=== PATIENT | male | born 1990 | race Caucasian/White ===

== ENCOUNTER 2024-08-07 09:16 | Outpatient (CLI) | payer BC, SELFPAY ==
--- OUTSIDE RECORDS SUMMARY | 2024-08-07 10:15 | XMS_ITS | Data Portability ---
Author Organization [facility] XUANTenzin Diggs Address [address] [place] [address] Care Team Providers Care Field Education Director Name Role Phone SUSU HINOJOSA Primary Care Provider Unavailab le Assessment No assessment recorded. Plan of Treatment Reminders Order Date Submit Date Provider Last Modified By Organization Details Last Modified Time Details Appointments None recorded. Lab None recorded. Referral None recorded. Procedures home sleep testing (PROC) - Auth approved [id number] valid 08/05-[address] [facility], [address] [place] [address], [id number], 11:19:15 Surgeries None recorded. Imaging None recorded. Medication Orders sertraline 100 mg tablet 2023 [facility], [address] [place] [address], [id number], 11:42:39 testosteron e cypionate 200 mg/mL intramuscul ar oil 2023 [id number], [address] , [place], [place], [phone], 12:31:11 Patient TargetsNo targets recorded. Patient Instructions Encounter Date Encounter Id Patient Instructions Last Modified By Organization Details Last Modified Time 06/12/2024 [id number] A healthy lifestyle: care instructions [email or web address] Not available 06/12/2024 11:42:36 Reason for Referral None Reported. Results Created Date Observation Date Name Description Value Unit Range Abnormal Flag Note LastModifiedBy Organization Detail LastModifiedTime Result Notes None recorded. Problems Name Problem SNOMED Code Status Onset Date Resolution Date Notes Provider Name and Address Organization Details Recorded Time Body mass index 25-29 - overweight 420144735 Active 2023 Byron Castillo MA null, [place] - [facility] 4 11:09:11 Long-term drug therapy Active 2023 MARY GRACE Zee Attn: Teo dodson,[address] [place], [address], [place] - [facility] 4 19:15:29 Generalized anxiety disorder 12056156 Active 2023 MARY GRACE Zee Attn: Teo dodson,[address] [place], [address], [place] [facility] 4 19:15:29 Sleep apnea 04505315 Active 2023 MARY GRACE Zee Attn: Teo dodson,[address] [place], [address], [place] [facility] 4 19:16:08 Male hypogonadis m 92519757 Active 2023 MARY GRACE Zee Attn: Teo dodson,[address] [place], [address], [place] [facility] 4 19:16:09 Overweight 421113770 Active 2023 MARY GRACE Zee Attn: Teo dodson,[address] [place], [address], [place] [facility] 4 19:16:12 Positive screening for depression on PHQ-9 (Patient Health Questionnai re 9) 1050165175903 00 Active 2023 MARY GRACE Zee Attn: Teo dodson,[address] [place], [address], [place] [facility] 4 19:16:33 Problem Notes None recorded. Procedures Surgical History Date Name Laterality Status Provider Name and Address Organization Details Recorded Time Eye Surgery completed Byron Castillo MA [facility] 06/12/2024 11:02:20 Tonsillectomy completed Byron Castillo MA [facility] 06/12/2024 11:02:25 Imaging Results None recorded. Procedure Notes None recorded. Medical Equipment None Reported. Allergies No known drug allergies Medications Name Sig Start Date Stop Date Status Note LastModified by Organization Details LastModified Time ondansetron HCl 4 mg tablet TAKE 1 TABLET BY MOUTH EVERY 8 HOURS 06/12 completed Not Available Not Available Not Available sertraline 100 mg tablet Take 1 tablet every day by oral route. 2023 active Not Available Not Available Not Avai lable testosteron e cypionate 200 mg/mL intramuscul ar oil Inject 1 mL every 2 weeks by intramusc ular route. 2023 active Not Available Not Available Not Avai lable Vitals Date Recorded Respiratory rate Provider Name a nd Address Organization Details Last Updated DateTime 06/12/2024 18 /min Byron Castillo MA [facility] 06/12/2024 11:05:18 Date Recorded Body height Provider Name an d Address Organization Details Last Updated DateTime 06/12/2024 175.26 cm Byron Castillo MA [facility] 2023 11:05:34 Date Recorded Body mass index (BMI) Body weight Provider Name and Address Organization Details Last Updated DateTime 06/12/2024 29.8 kg/m2 26037.66 g Byron Castillo MA [facility] 06/12/2024 11:09:05 Date Recorded Oxygen saturation Oxygen saturation in Arterial blood by Pulse oximetry Provider Name and Address Organization Details Last Updated DateTime 06/12/2024 99 % 99 % Byron Castillo MA [facility] 06/12/2024 11:07:15 Date Recorded Heart rate Provider Name an d Address Organization Details Last Updated DateTime 06/12/2024 70 /min Byron Castillo MA [facility] 2023 11:08:12 Date Recorded Systolic blood pressure Diastolic blood pressure Provider Name and Address Organization Details Last Updated DateTime 06/12/2024 128 mm[Hg] 82 mm[Hg] Byron Castillo MA [facility] 06/12/2024 11:08:15 Date Recorded Systolic blood pressure Diastolic blood pressure Provider Name and Address Organization Details Last Updated DateTime 06/12/2024 128 mm[Hg] 80 mm[Hg] MARY GRACE Zee Attn: Accounting,[address] [facility], [place], [address], [facility] 06/12/2024 11:44:29 Social History Question Answer Notes LastModified by Organizat ion Details LastModified Time Tobacco Smoking Status Never Smoker Byron Castillo MA null, [facility] 06/12/2024 11:02:41 Do You Have An Advance Directive? No Information n ot available 06/12/2024 What Is Your Level Of Alcohol Consumption? Occasional Information not available 06/12/2024 Are You Blind Or Do You Have Difficulty Seeing? No Lasix Information n ot available 06/12/2024 What Is Your Level Of Caffeine Consumption? Moderate Information not available 06/12/2024 In The 14 Days Before Symptom Onset, Have You Had Close Contact With A Laboratory-confirm ed COVID-19 While That Case Was Ill? No Information n ot available 06/12/2024 In The 14 Days Before Symptom Onset, Have You Had Close Contact With A Person Who Is Under Investigation For COVID-19 While That Person Was Ill? No Information not available 06/12/2024 Have You Been To An Area Known To Be High Risk For COVID-19? No Information not available 06/12/2024 Are You Currently Employed? Yes Information not available 06/12/2024 Are You Deaf Or Do You Have Serious Difficulty Hearing? No Information not available 06/12/2024 What Type Of Diet Are You Following? REGULAR Information n ot available 06/12/2024 Are There Any Guns Present In Your Home? No Information not available 06/12/2024 What Was The Date Of Your Most Recent Tobacco Screening? 06/12/2024 Information not available 06/12/2024 What Is Your Relationship Status? Information not available 06/12/2024 Do You Use Your Seat Belt Or Car Seat Routinely? Yes Information not available 06/12/2024 Do You Have Smoke And Carbon Monoxide Detectors In Your Home? Yes Information not available 06/12/2024 Do You Feel Stressed (tense, Restless, Nervous, Or Anxious, Or Unable To Sleep At Night)? PA2794-4 Information not available 06/12/2024 Do You Use Any Illicit Or Recreational Drugs? No Information not available 06/12/2024 Do You Use Sunscreen Routinely? Yes Information not available 06/12/2024 Has Tobacco Cessation Counseling Been Provided? No Information not available 06/12/2024 Do You Or Have You Ever Used Any Other Forms Of Tobacco Or Nicotine? No Information not available 06/12/2024 Sex: Male Functional Status Question Answer Note LastModified by [employer] ion Details LastModified Time Are you able to care for yourself? Yes Information not available 06/12/2024 What is your exercise level? Occasional Information not available 06/12/2024 Mental Status None recorded. Family History Nothing Reported. Medical History Condition Response Coronary Artery Disease N Other N High Blood Pressure N Atrial Fibrillation N Kidney or Bladder Problems N Thyroid Problems N GI Problems N Depression N COPD N Blood Clots N Have you had a mammogram in the last yea r? N Skin Problems N Anemia N Heart Attack (ID) N Anxiety Disorder Y Diabetes N Muscle, Joint, or Bone Problems N Seizures/Epilepsy N Have you had a colonoscopy in the last 1 0 years? N Acid Reflux (GERD) N Cancer N Stroke N Asthma N Allergies N Have you had a PSA blood test in the las t year? N High Cholesterol N Hepatitis N Liver Disease N Headaches N Heart Failure N Osteoporosis N Immunizations Vaccine Type Date Status Note Provider Nam e and Address Organization Details Recorded Time COVID-19, mRNA, LNP-S, PF, 30 mcg/0.3 mL dose 07/19/2020 completed SEDA Guzman [place] - [facility] 06/12/2024 11:07:06 COVID-19, mRNA, LNP-S, PF, 30 mcg/0.3 mL dose 06/28/2020 completed SEDA Guzman [place] - [facility] 06/12/2024 11:07:06 Past Encounters Encounter ID Performer Location Encounter Start Date Encounter Closed Date Diagnosis/Indication Diagnosis SNOMED-CT Code Diagnosis ICD10 Code Diagnosis Note [id number] MARY GRACE Zee [facility] [employer] [address] [place] [address] 06/12/2024 10:46:33 06/12/2024 14:23:34 Body mass index 25-29 - overweight 057225753 Z68.29 BMI is 29.8 Overweight 906101783 E66 .3 discussed healthy diet, exercise, controllin g carbohydra khloe and added sugars in the diet Generalize d anxiety disorder 77114731 F41.1 Refill sertraline 100 mg daily patient is stable on therapy with no acute questions or concerns Long-term drug therapy 285455398 Z79.891 Labs reviewed Adult heal th examination 265689779 Z00.00 Annual wellness exam completed. Male hypogonadism 418885 06 E29.1 Patient has low testostero ne total noted on labs brought in from outside source. We will start him on 200 mg every 2 weeks. Home injections will be given. Sleep apnea 76049043 G47 .30 Refer for home sleep study test in to evaluate witnessed apnea high suspicion for obstructiv e sleep apnea Positive s creening for depression on PHQ-9 (Patient Health Questionnaire 9) 7268474139 73314 Z13.31 Patient scored a 5 on screening today and mostly related to fatigue Health Concerns Section Related Observation LastModified by Organization Detai ls LastModified Time None Recorded Concern Status LastModified by Organization Details LastModified Time None Recorded Advance Directives Directive N: Payers Encounter Date Sequence Insurance Name Policy Number Policy Stanton Covered Member ID Stanton Member ID Guarantor Name 06/12/2024 1 [employer] [id number] Rashad Cabral [id number] Rashad Cabral Notes Date Note Type Note Provider Name and Address Organization Details Recorded Time 06/12/2024 text/html Patient is here for his annual wellness exam. Patient has brought labs from outside testing panel that includes showing low testosterone and he is interested in supplementation. Records will be scanned into the chart. MARY GRACE Zee Attn: Accounting[address] [facility], [place], [address], [place] [facility] 07/03/2024 19:16:49
--- OUTSIDE RECORDS SUMMARY | 2024-08-07 10:15 | XMS_ITS | CONTINUITY OF CARE DOCUMENT ---
Author Name curly rawls Address Unknown Organization [facility] Address [address] [place] [address] Phone [phone] Care Team Providers Care Ic Designer [employer] Name Role Phone Stan Ayers MD Unavailable INSURANCE PROVIDERS Payer name Policy type / Coverage type [place] red green party ID [employer] Other [id number]
--- OUTSIDE RECORDS SUMMARY | 2024-08-07 10:16 | XMS_ITS | Data Portability ---
Author Organization [facility] [place], Main Office Address [address] [place] [address] Assessment No assessment recorded. Plan of Treatment Reminders Order Date Submit Date Provider Last Modified By Organization Details Last Modified Time Details Appointments None recorded. Lab TSH + free T4, serum 2022 023 [email or web address] Not available 3 16:06:48 CMP, serum or plasma 2022 023 [email or web address] 4 Not available 3 16:06:48 CBC w/ auto diff 2022 023 [email or web address] Not available 3 16:06:48 lipid panel, serum 2022 023 [email or web address] Not available 3 16:06:47 urinalysis, reflex culture 2022 023 [email or web address] Not available 3 16:06:48 HbA1c (hemoglobin A1c), blood 2022 023 [email or web address] Not available 3 16:06:48 testosteron e, free + total, serum 2022 023 [facility] (Lab), [address] [place], [address], 3 15:16:57 vitamin B12 + folate, serum or blood 2022 023 [facility] (Lab), [address] [place], [address], 3 15:16:55 matthew-bar r virus (ebv) Ab, serum 2022 023 [email or web address] 4 [facility] (Lab), [address] [place], [address], 3 12:33:21 urinalysis, reflex culture 2022 023 [email or web address] [facility] (Lab), [address] [place], [address], 3 12:33:21 HbA1c (hemoglobin A1c), blood 2022 023 [facility] (Lab), [address] [place], [address], 3 15:16:48 lipid panel, serum 2022 023 [facility] (Lab), [address] [place], [address], 3 15:16:45 CMP, serum or plasma 2022 023 [facility] (Lab), [address] [place], [address], 3 15:16:46 CBC w/ auto diff 2022 023 [facility] (Lab), [address] [place], [address], 3 15:16:53 T4, free, serum 2022 023 [facility] (Lab), [address] [place], [address], 3 15:16:50 T3, free, serum or plasma 2022 023 [facility] (Lab), [address] [place], [address], 3 15:16:52 TSH, serum or plasma 2022 023 [facility] ([facility]), [address] [place], [address], 3 15:16:[address] referral 2022 023 [email or web address] [facility], [facility] [place], [address], 3 16:06:58 Procedures None recorded. Surgeries None recorded. Imaging None recorded. Medication Orders sertraline 100 mg tablet 2022 023 [employer] [facility], [facility] [place], [address], 3 11:37:18 Patient TargetsNo targets recorded. Patient InstructionsNo instructions recorded. Reason for Referral [employer] Referral for N odule of skin of right upper limb Referring Physician: Kathy Ramos, Internal Medicine, Encounter Date: 11/13/2022 Results Created Date Observation Date Name Description Value Unit Range Abnormal Flag Note LastModifiedBy Organization Detail LastModifiedTime 06/20/2006/25/2023 LIPID PANEL , STAND SAM cholesterol, total 199 mg/dL <200 normal Not Available [facility] [address] [place], [address], 06/25/2023 15:16:45 06/20/2006/25/2023 LIPID PANEL , STAND SAM HDL cholesterol 37 mg/dL > or = 40 low Not Available [facility] [address] [place], [address], 06/25/2023 15:16:45 06/20/2006/25/2023 LIPID PANEL , STAND SAM triglyceride s 99 mg/dL <150 normal Not Available [facility] [address] [place], [address], 06/25/2023 15:16:45 06/20/20 23 06/25/2023 LIPID PANEL , STAND SAM LDL-choleste rol 141 mg/dL _(brian c) high Refer ence range : <100 Mario able range <100 mg/dL for prima ry preve ntion ; <70 mg/dL for patie nts with CHD or diabe tic patie nts with > or = 2 CHD risk facto rs. LDL-C is now calcu lated using the Annette n-Hop kins calcu latha n, which is a valid ated novel metho d provi ding ariella r accur acy than the Fried erin equat ion in the estim ation of LDL-C . Annette curry SS et al. RAKAN. 2013; 310(1 9): 2061- 2068 (http ://ed ucati on.Qu Manyeta. com/f aq/FA Q164) Not Available [facility] [address] [place], [address], 06/25/2023 15:16:45 06/20/20 23 06/25/2023 LIPID PANEL , STAND SAM chol/HDLC ratio 5.4 (calc ) <5.0 high Not Available [facility] [address] [place], [address], 06/25/2023 15:16:45 06/20/20 23 06/25/2023 LIPID PANEL , STAND SAM non HDL cholesterol 162 mg/dL _(brian c) <130 high For patie nts with diabe khloe plus 1 major ASCVD risk facto r, treat ing to a non-H DL-C goal of <100 mg/dL (LDL- C of <70 mg/dL ) is consjoselito stewart optio n. Not Available [facility] [address] [place], [address], 06/25/2023 15:16:45 06/20/20 23 06/25/2023 COMPR EHENS JAM METAB OLIC PANEL glucose 87 mg/dL 65-99 normal Fasti ng refer ence inter linh Not Available [address] [place], [address], 06/25/2023 15:16:46 06/20/20 23 06/25/2023 COMPR EHENS JAM METAB OLIC PANEL urea nitrogen (BUN) 18 mg/dL 7-25 normal Not Available [address], [address], 06/25/2023 15:16:46 06/20/20 23 06/25/2023 COMPR EHENS JAM METAB OLIC PANEL creatinine 0.92 mg/dL 0.60-1 .26 normal Not Available [address], [address], 06/25/2023 15:16:46 06/20/20 23 06/25/2023 COMPR EHENS JAM METAB OLIC PANEL eGFR 113 mL/mi n/1.7 3m2 > or = 60 normal Not Available [address], [address], 06/25/2023 15:16:46 06/20/20 23 06/25/2023 COMPR EHENS JAM METAB OLIC PANEL BUN/creatini ne ratio SEE NOTE: (calc ) 6-22 Not Repor kailee: BUN and Creat inine are withi n refer ence range . Not Available [address], [address], 06/25/2023 15:16:46 06/20/20 23 06/25/2023 COMPR EHENS JAM METAB OLIC PANEL sodium 139 mmol/ L 135-14 6 normal Not Available [address], [address], 06/25/2023 15:16:46 06/20/20 23 06/25/2023 COMPR EHENS JAM METAB OLIC PANEL potassium 4.1 mmol/ L 3.5-5. 3 normal Not Available [address], [address], 06/25/2023 15:16:46 06/20/20 23 06/25/2023 COMPR EHENS JAM METAB OLIC PANEL chloride 102 mmol/ L 98-110 normal Not Available [address], [address], 06/25/2023 15:16:46 06/20/20 23 06/25/2023 COMPR EHENS JAM METAB OLIC PANEL carbon dioxide 29 mmol/ L 20-32 normal Not Available [address], [address], 06/25/2023 15:16:46 06/20/20 23 06/25/2023 COMPR EHENS JAM METAB OLIC PANEL calcium 10.0 mg/dL 8.6-10 .3 normal Not Available [address], [address], 06/25/2023 15:16:46 06/20/20 23 06/25/2023 COMPR EHENS JAM METAB OLIC PANEL protein, total 7.8 g/dL 6.1-8. 1 normal Not Available [address], [address], 06/25/2023 15:16:46 06/20/20 23 06/25/2023 COMPR EHENS JAM METAB OLIC PANEL albumin 5.0 g/dL 3.6-5. 1 normal Not Available [address], [address], 06/25/2023 15:16:46 06/20/20 23 06/25/2023 COMPR EHENS JAM METAB OLIC PANEL globulin 2.8 g/dL_ (calc ) 1.9-3. 7 normal Not Available [address], [address], 06/25/2023 15:16:46 06/20/20 23 06/25/2023 COMPR EHENS JAM METAB OLIC PANEL albumin/glob ulin ratio 1.8 (calc ) 1.0-2. 5 normal Not Available [address], [address], 06/25/2023 15:16:46 06/20/20 23 06/25/2023 COMPR EHENS JAM METAB OLIC PANEL bilirubin, total 0.5 mg/dL 0.2-1. 2 normal Not Available [address], [address], 06/25/2023 15:16:46 06/20/20 23 06/25/2023 COMPR EHENS JAM METAB OLIC PANEL alkaline phosphatase 75 U/L 36-130 normal Not Available [address], [address], 06/25/2023 15:16:46 06/20/20 23 06/25/2023 COMPR EHENS JAM METAB OLIC PANEL AST 20 U/L 10-40 normal Not Available [address], [address], 06/25/2023 15:16:46 06/20/20 23 06/25/2023 COMPR EHENS JAM METAB OLIC PANEL ALT 30 U/L 9-46 normal Not Available [address], [address], 06/25/2023 15:16:46 06/20/2006/25/2023 HEMOG LOBIN A1C hemoglobin A1C 5.1 %_of_ total _HGB <5.7 normal For the purpo se of adamaris olguin for the prese nce of diabe khloe: <5.7% Consi stent with the absen ce of diabe khloe 5.7-6 .4% Consi stent with incre ased risk for diabe khloe (pred iabet es) > or =6.5% Consi stent with diabe khloe This assay resul t is consi stent with a decre ased risk of diabe khloe. Curre ntly, no conse nsus exist s rizwan vann use of hemog lobin A1c for diagn osis of diabe khloe in child nery. Accor edwar to Ameri can Diabe khloe Assoc iatio n (ADA) guide lines , hemog lobin A1c <7.0% repre sents optim al contr ol in non-p regna nt diabe tic patie nts. Diffe rent metri cs may apply to speci fic patie nt popul ation s. Stand ards of Medic al Care in Diabe khloe(A DA). Not Available [facility] [address] [address] [place], [address], 06/25/2023 15:16:48 06/20/2006/25/2023 TSH TSH 1.86 mIU/L 0.40-4 .50 normal Not Available [address], [address], 06/25/2023 15:16:49 06/20/20 23 06/25/2023 T4, FREE T4, free 1.3 NG/dL 0.8-1. 8 normal Not Available [address] [address] [place], [address], 06/25/2023 15:16:50 06/20/20 23 06/25/2023 T3, FREE T3, free 3.5 pg/mL 2.3-4. 2 normal Not Available [address] [address] [place], [address], 06/25/2023 15:16:51 06/20/20 23 06/25/2023 CBC (INCL UDES DIFF/ PLT) white blood cell count 7.1 thous and/u L 3.8-10 .8 normal Not Available [facility] [address] [address] [place], [address], 06/25/2023 15:16:53 06/20/20 23 06/25/2023 CBC (INCL UDES DIFF/ PLT) red blood cell count 4.95 jeffrey on/uL 4.20-5 .80 normal Not Available [address], [address], 06/25/2023 15:16:53 06/20/20 23 06/25/2023 CBC (INCL UDES DIFF/ PLT) hemoglobin 14.6 g/dL 13.2-1 7.1 normal Not Available [address], [address], 06/25/2023 15:16:53 06/20/20 23 06/25/2023 CBC (INCL UDES DIFF/ PLT) hematocrit 44.7 % 38.5-5 0.0 normal Not Available [address], [address], 06/25/2023 15:16:53 06/20/20 23 06/25/2023 CBC (INCL UDES DIFF/ PLT) MCV 90.3 fL 80.0-1 00.0 normal Not Available [address], [address], 06/25/2023 15:16:53 06/20/20 23 06/25/2023 CBC (INCL UDES DIFF/ PLT) MCH 29.5 pg 27.0-3 3.0 normal Not Available [address], [address], 06/25/2023 15:16:53 06/20/20 23 06/25/2023 CBC (INCL UDES DIFF/ PLT) MCHC 32.7 g/dL 32.0-3 6.0 normal Not Available [address], [address], 06/25/2023 15:16:53 06/20/20 23 06/25/2023 CBC (INCL UDES DIFF/ PLT) RDW 11.9 % 11.0-1 5.0 normal Not Available [address], [address], 06/25/2023 15:16:53 06/20/20 23 06/25/2023 CBC (INCL UDES DIFF/ PLT) platelet count 241 thous and/u L 140-40 0 normal Not Available [address], [address], 06/25/2023 15:16:53 06/20/20 23 06/25/2023 CBC (INCL UDES DIFF/ PLT) MPV 12.0 fL 7.5-12 .5 normal Not Available [address], [address], 06/25/2023 15:16:53 06/20/20 23 06/25/2023 CBC (INCL UDES DIFF/ PLT) absolute neutrophils 4679 cells /uL 1500-7 800 normal Not Available [address], [address], 06/25/2023 15:16:53 06/20/20 23 06/25/2023 CBC (INCL UDES DIFF/ PLT) absolute lymphocytes 1953 cells /uL 850-39 00 normal Not Available [address], [address], 06/25/2023 15:16:53 06/20/20 23 06/25/2023 CBC (INCL UDES DIFF/ PLT) absolute monocytes 348 cells /uL 200-95 0 normal Not Available [address], [address], 06/25/2023 15:16:53 06/20/20 23 06/25/2023 CBC (INCL UDES DIFF/ PLT) absolute eosinophils 92 cells /uL 15-500 normal Not Available [address], [address], 06/25/2023 15:16:53 06/20/20 23 06/25/2023 CBC (INCL UDES DIFF/ PLT) absolute basophils 28 cells /uL 0-200 normal Not Available [address], [address], 06/25/2023 15:16:53 06/20/20 23 06/25/2023 CBC (INCL UDES DIFF/ PLT) neutrophils 65.9 % normal Not Available [address], [address], 06/25/2023 15:16:53 06/20/20 23 06/25/2023 CBC (INCL UDES DIFF/ PLT) lymphocytes 27.5 % normal Not Available [address], [address], 06/25/2023 15:16:53 06/20/20 23 06/25/2023 CBC (INCL UDES DIFF/ PLT) monocytes 4.9 % normal Not Available [address], [address], 06/25/2023 15:16:53 06/20/20 23 06/25/2023 CBC (INCL UDES DIFF/ PLT) eosinophils 1.3 % normal Not Available [address], [address], 06/25/2023 15:16:53 06/20/20 23 06/25/2023 CBC (INCL UDES DIFF/ PLT) basophils 0.4 % normal Not Available [address], [address], 06/25/2023 15:16:53 06/20/20 23 06/25/2023 URINA LYSIS , COMPL ETE W/REF ELENI TO CULTU RE color YELLOW yellow normal Not Available [address], [address], 06/25/2023 15:16:54 06/20/20 23 06/25/2023 URINA LYSIS , COMPL ETE W/REF ELENI TO CULTU RE appearance TURBID clear abnormal Not Available [address], [address], 06/25/2023 15:16:54 06/20/20 23 06/25/2023 URINA LYSIS , COMPL ETE W/REF ELENI TO CULTU RE specific gravity 1.025 1.001- 1.035 normal Not Available [address], [address], 06/25/2023 15:16:54 06/20/20 23 06/25/2023 URINA LYSIS , COMPL ETE W/REF ELENI TO CULTU RE pH 5.5 5.0-8. 0 normal Not Available [address], [address], 06/25/2023 15:16:54 06/20/20 23 06/25/2023 URINA LYSIS , COMPL ETE W/REF ELENI TO CULTU RE glucose NEGATI VE negati ve normal Not Available [address], [address], 06/25/2023 15:16:54 06/20/20 23 06/25/2023 URINA LYSIS , COMPL ETE W/REF ELENI TO CULTU RE bilirubin NEGATI VE negati ve normal Not Available [address], [address], 06/25/2023 15:16:54 06/20/20 23 06/25/2023 URINA LYSIS , COMPL ETE W/REF ELENI TO CULTU RE ketones NEGATI VE negati ve normal Not Available [address], [address], 06/25/2023 15:16:54 06/20/20 23 06/25/2023 URINA LYSIS , COMPL ETE W/REF ELENI TO CULTU RE occult blood NEGATI VE negati ve normal Not Available [address], [address], 06/25/2023 15:16:54 06/20/20 23 06/25/2023 URINA LYSIS , COMPL ETE W/REF ELENI TO CULTU RE protein NEGATI VE negati ve normal Not Available [address], [address], 06/25/2023 15:16:54 06/20/20 23 06/25/2023 URINA LYSIS , COMPL ETE W/REF ELENI TO CULTU RE nitrite NEGATI VE negati ve normal Not Available [address], [address], 06/25/2023 15:16:54 06/20/20 23 06/25/2023 URINA LYSIS , COMPL ETE W/REF ELENI TO CULTU RE leukocyte esterase NEGATI VE negati ve normal Not Available [address], [address], 06/25/2023 15:16:54 06/20/20 23 06/25/2023 URINA LYSIS , COMPL ETE W/REF ELENI TO CULTU RE WBC NONE SEEN /hpf < or = 5 normal Not Available [address], [address], 06/25/2023 15:16:54 06/20/20 23 06/25/2023 URINA LYSIS , COMPL ETE W/REF ELENI TO CULTU RE RBC NONE SEEN /hpf < or = 2 normal Not Available [address], [address], 06/25/2023 15:16:54 06/20/20 23 06/25/2023 URINA LYSIS , COMPL ETE W/REF ELENI TO CULTU RE squamous epithelial cells NONE SEEN /hpf < or = 5 normal Not Available [address], [address], 06/25/2023 15:16:54 06/20/20 23 06/25/2023 URINA LYSIS , COMPL ETE W/REF ELENI TO CULTU RE bacteria NONE SEEN /hpf none seen normal Not Available [address], [address], 06/25/2023 15:16:54 06/20/20 23 06/25/2023 URINA LYSIS , COMPL ETE W/REF ELENI TO CULTU RE hyaline cast NONE SEEN /lpf none seen normal Not Available [address], [address], 06/25/2023 15:16:54 06/20/20 23 06/25/2023 URINA LYSIS , COMPL ETE W/REF ELENI TO CULTU RE note This urine was clyde zed for the prese nce of WBC, RBC, bacte dora, casts , and other forme d eleme nts. Only those eleme nts seen were repor kailee. Not Available [address], [address], 06/25/2023 15:16:54 06/20/20 23 06/25/2023 REFLE XIVE URINE CULTU RE reflexive urine culture NO CULTU RE INDIC ATED Not Available [address], [address], 06/25/2023 15:16:55 06/20/20 23 06/25/2023 VITAM IN B12/F OLATE , SERUM PANEL vitamin B12 566 pg/mL 200-11 00 normal Not Available [address], [address], 06/25/2023 15:16:55 06/20/20 23 06/25/2023 VITAM IN B12/F OLATE , SERUM PANEL folate, serum 18.9 NG/mL normal Refer ence Range Low: <3.4 Borde rline : 3.4-5 .4 Nhung l: >5.4 Not Available [address], [address], 06/25/2023 15:16:55 06/20/20 23 06/25/2023 EPSTE IN HOBSON VIRUS ANTIB NAN PANEL ebv viral capsid Ag (vca) Ab (IgM) <36.00 U/mL normal U/mL Inter preta tion ---- ----- ----- ---- <36.0 0 Negat jam 36.00 -43.9 9 Equiv ocal >43.9 9 Posit jam Not Available [facility] [address], [address], 06/25/2023 15:16:56 06/20/20 23 06/25/2023 EPSTE IN HOBSON VIRUS ANTIB NAN PANEL ebv viral capsid Ag (vca) Ab (IgG) >750.0 0 U/mL high U/mL Inter preta tion ---- ----- ----- ---- <18.0 0 Negat jam 18.00 -21.9 9 Equiv ocal >21.9 9 Posit jam Not Available [facility] [address], [address], 06/25/2023 15:16:56 06/20/20 23 06/25/2023 EPSTE IN HOBSON VIRUS ANTIB NAN PANEL ebv nuclear Ag (ebna) Ab (IgG) 289.00 U/mL high U/mL Inter preta tion ---- ----- ----- ---- <18.0 0 Negat jam 18.00 -21.9 9 Equiv ocal >21.9 9 Posit jam Not Available [facility] [address], [address], 06/25/2023 15:16:56 06/20/2006/25/2023 EPSTE IN HOBSNO VIRUS ANTIB NAN PANEL interpretati on: Sugge stive of a past Epste in-Ba rr virus infec tion. In infan ts, a simil ar dylan rn may occur as a resul t of passi ve mater nal trans claudia of antib nan. Not Available [facility] [address] [place], [address], 06/25/2023 15:16:56 06/20/2006/25/2023 TESTO STERO NE, FREE (DIAL YSIS) AND TOTAL ,MS testosterone , total, MS 355 NG/dL 250-11 00 Men with clini nuria signi fican t hypog onada l sympt oms and testo stero ne value s repea tedly in the range of the 200-3 00 ng/dL or less, may benef it from testo stero ne treat ment after adequ ate risk and benef its couns eling . For addit ional infor candy aparicio e refer to https ://ed ucati on.Collecta. ChoicePass/f aq/FA Q165 (This link is being provi ded for infor niki nal/e ducat ional purpo ses only. ) (Note ) This test was devel oped and its clyde tical perfo rmanc e vinny cteri stics have been deter mined by [employer]. It has not been clear ed or appro brian by the FDA. This assay has been valid ated pursu ant to the CLIA regul ation s and is used for clini brian purpo ses. Not Available [address] [address] [facility] [place], [address], 06/25/2023 15:16:57 06/20/20 23 06/25/2023 TESTO STERO NE, FREE (DIAL YSIS) AND TOTAL ,MS testosterone , free 75.1 pg/mL 35.0-1 55.0 (Note ) This test was devel oped and its clyde tical perfo rmanc e vinny cteri stics have been deter mined by [employer]. It has not been clear ed or appro brian by the FDA. This assay has been valid ated pursu ant to the CLIA regul ation s and is used for clini brian purpo ses. [facility] med fusio n [address] [facility] [address] [place] [address] [phone] Star laboy MD Not Available [facility] [address] [address] , [place], [address], 06/25/2023 15:16:57 11/29/19 22 11/28/2021 XR, elbow No observ ation record ed. [id number] [facility] ([facility]) [address], [place], [address], 09/06/2022 04:39:35 Result Notes None recorded. Problems Name Problem SNOMED Code Status Onset Date Resolution Date Notes Provider Name and Address Organization Details Recorded Time Generalize d anxiety disorder 74920926 Active 2022 MARY GRACE Zee [address], [address], [place], [address] , [employer] [facility] [employer] 3 11:20:37 Nodule of skin of right upper limb [id number] 9107 Active 2022 MARY GRACE Zee [address], [address], [place], [address] , [employer] 3 11:35:30 Diarrhea of presumed infectious origin 44276117 Active 2022 MARY GRACE Zee [address], [place], [address] , [employer] 3 13:48:15 Viral syndrome 368481128 Active 2022 MARY GRACE Zee [address], [address], [place], [address] , [employer] 3 14:23:10 Weight loss 70522601 Active 2022 MARY GRACE Zee [address], [address], [place], [address] , [employer] 3 14:23:15 Low grade pyrexia 952369383 Active 2022 MARY GRACE Zee [address], [address], [place], [address] , [employer] 3 14:26:20 Irritable bowel syndrome 94756143 Active Not Available [facility] 3 04:33:45 Contusion of left elbow 8872453389399 9108 Active 2021 Not Available [facility] 3 04:33:45 Injury of elbow 332053853 Active 2021 Not Available [facility] 3 04:33:45 Acute sinusitis 21599828 Active 2021 Not Available [facility] 3 04:33:45 Acute pharyngiti s 300568339 Active 2021 Not Available [facility] 3 04:33:45 Anxiety 76547245 Active 2019 Not Available [facility] 3 04:33:45 Hyperlipid emia 03492211 Active Not Available [facility] 3 04:33:45 Allergic rhinitis 66158169 Active Not Available [facility] 3 04:33:45 Diarrhea 92086540 Active Not Available [facility] 3 04:33:45 Problem Notes None recorded. Procedures Surgical History Date Name Laterality Status Provider Name and Address Organization Details Recorded Time 2 Sinus Surgery completed Not Available [facility] 2022 04:29:31 Hernia Repair completed Not Available [facility] 09/06/2022 04:29:31 Tonsillectomy completed Not Available [facility] 09/06/2022 04:29:31 Imaging Results Imaging Date Name Status LastModified by Organiz ation Details LastModified Time 11/28/2021 XR, elbow completed [id number] [facility] ([facility]) [address] [place], [address], 09/06/2022 04:39:35 Procedure Notes None recorded. Medical Equipment None Reported. Allergies No known drug allergies Medications Name Sig Start Date Stop Date Status Note LastModified by Organization Details LastModified Time sure comfort insulin syringe 31g x sure comfort insulin syringe 31g x 5/16 1 ml misc active Not Available Not Available Not Available hydrocodone 5 mg-acetamin ophen 325 mg tablet 08/21 completed Not Available Not Available Not Available ondansetron HCl 4 mg tablet TAKE 1 TABLET BY MOUTH EVERY 8 HOURS active Not Available Not Available No t Available sertraline 100 mg tablet TAKE ONE TABLET BY MOUTH EVERY DAY active Not Available Not Available No t Available metronidazo le 500 mg tablet TAKE 1 TABLET BY MOUTH EVERY 8 HOURS 06/14 completed Not Available Not Available Not Available ciprofloxac in 500 mg tablet TAKE 1 TABLET BY MOUTH EVERY 12 HOURS 06/14 completed Not Available Not Available Not Available tramadol 50 mg tablet 10/25 completed Not Available Not Available Not Available amoxicillin 875 mg tablet Take 1 tablet every 12 hours by oral route. active Not Available Not Available No t Available dicyclomine 20 mg tablet active Not Available Not Available Not Available esomeprazol e magnesium 40 mg capsule,del ayed release active Not Available Not Available Not Available prednisone 50 mg tablet Take 1 tablet every day by oral route for 5 days. active Not Available Not Available No t Available epinephrine 0.3 mg/0.3 mL injection, auto-inject or INJECT ONCE NEEDED FOR ALLERGIC REACTION active Not Available Not Available No t Available methylpredn isolone 4 mg tablets in a dose pack 11/01 completed Not Available Not Available Not Available fluticasone propionate 50 mcg/actuati on nasal spray,suspe nsion 2 sprays each nostril qd 11/03 completed Not Available Not Available Not Available sertraline 50 mg tablet Take 1 tablet every day by oral route as directed. 05/07 completed Not Available Not Available Not Available diazepam 5 mg tablet active Not Available Not Available No t Available amoxicillin 875 mg-potassiu m clavulanate 125 mg tablet Take 1 tablet every 12 hours by oral route. active Not Available Not Available No t Available [employer]plus Insulin 0.5 mL 31 gauge x 5/16 syringe USE UNDER THE SKIN 8 TIMES A WEEK DIRECTED active Not Available Not Available No t Available [employer] Insulin 1 mL 31 gauge x 5/16 syringe USE 6 TIMES WEEKLY FOR ALLERGY INJECTION S active Not Available Not Available No t Available ID NOW COVID-19 Test Kit TEST DIRECTED TODAY 11/13 completed Not Available Not Available Not Available Vitals Date Recorded Body mass index (BMI) Body height Oxygen saturation Oxygen saturation in Arterial blood by Pulse oximetry Heart rate Body temperature Body weight Systolic blood pressure Diastolic blood pressure Provider Name and Address Organization Details Last Updated DateTime 1 30.7 kg/m2 177.8 cm 98 % 98 % 97 /min 96.7 [degF] 01320.4 9 g 120 mm[Hg] 80 mm[Hg] Not Available [facility] 3 04:32:42 Date Recorded Body mass index (BMI) Body height Oxygen saturation Oxygen saturation in Arterial blood by Pulse oximetry Heart rate Respiratory rate Body temperature Body weight Systolic blood pressure Diastolic blood pressure Provider Name and Address Organization Details Last Updated DateTime 2 29.3 kg/m2 177.8 cm 97 % 97 % 90 /min 16 /min 97.4 [degF] 57138.8 4 g 132 mm[Hg] 88 mm[Hg] Not Available [facility] 3 04:32:42 Date Recorded Body mass index (BMI) Body height Oxygen saturation Oxygen saturation in Arterial blood by Pulse oximetry Heart rate Respiratory rate Body temperature Body weight Systolic blood pressure Diastolic blood pressure Provider Name and Address Organization Details Last Updated DateTime 2 29.6 kg/m2 177.8 cm 98 % 98 % 83 /min 16 /min 97.6 [degF] 53851.0 3 g 120 mm[Hg] 78 mm[Hg] Not Available [facility] 3 04:32:42 Date Recorded Body height Body mass index (BMI) Body weight Heart rate Oxygen saturation Oxygen saturation in Arterial blood by Pulse oximetry Body temperature Systolic blood pressure Diastolic blood pressure Provider Name and Address Organization Details Last Updated DateTime 3 177.8 cm 29.7 kg/m2 46291.6 2 g 62 /min 98 % 98 % 98.1 [degF] 120 mm[Hg] 84 mm[Hg] MARRY Zapata [place] [employer] 3 11:17:30 Date Recorded Body height Body mass index (BMI) Body weight Body temperature Heart rate Respiratory rate Oxygen saturation Oxygen saturation in Arterial blood by Pulse oximetry Provider Name and Address Organization Details Last Updated DateTime 3 177.8 cm 27.3 kg/m2 78430.5 5 g 97.8 [degF] 76 /min 16 /min 97 % 97 % DENVER Hernandez [place] [facility] 14:06:14 Date Recorded Systolic blood pressure Diastolic blood pressure Provider Name and Address Organization Details Last Updated DateTime 06/18/2023 110 mm[Hg] 70 mm[Hg] MARY GRACE Zee [address], [facility] [address], [place], [address], [place] [facility] 06/18/2023 14:22:55 Social History Question Answer Notes LastModified by Organizat ion Details LastModified Time Tobacco Smoking Status Never Smoker Not Available [employer] 09/06/2022 04:20:21 Do You Have An Advance Directive? No [id number] Information not available 09/06/2022 What Is Your Level Of Alcohol Consumption? Occasional MIGRATION.[id number] Information not available 09/06/2022 What Is Your Level Of Caffeine Consumption? Heavy MIGRATION.[id number] 7450 Information not available 09/06/2022 How Much Tobacco Do You Chew? None MIGRATION.[id number] 9541 Information not available 09/06/2022 In The 14 Days Before Symptom Onset, Have You Had Close Contact With A Laboratory-confir med COVID-19 While That Case Was Ill? No MIGRATION.[id number] [id number] Information not available 09/06/2022 In The 14 Days Before Symptom Onset, Have You Had Close Contact With A Person Who Is Under Investigation For COVID-19 While That Person Was Ill? No MIGRATION.[id number] 6673 Information not available 09/06/2022 Are You Currently Employed? Yes [email or web address] Information not available 11/13/2022 What Type Of Diet Are You Following? REGULAR MIGRATION.[id number] 7925 Information not available 09/06/2022 Which Illicit Or Recreational Drugs Have You Used? None [id number].[id number] Information not available 09/06/2022 Do You Or Have You Ever Used E-cigarettes Or Vape? Never Used Electronic Cigarettes MIGRATION.[id number] 5081 Information not available 09/06/2022 What Is Your Occupation? [employer] MIGRATION.997529 9525 Information not available 09/06/2022 Have There Been Any Changes To Your Family Or Social Situation? No MIGRATION.[id number] Information not available 09/06/2022 Are There Any Guns Present In Your Home? Yes MIGRATION.855199 9068 Information not available 09/06/2022 Do You Use Insect Repellent Routinely? No MIGRATION.674516 0094 Information not available 09/06/2022 Do You Have A Medical Power Of Wire Basket Maker? No MIGRATION.[id number] 1731 Information not available 09/06/2022 How Many Children Do You Have? 3 [email or web address] Information not available 11/13/2022 What Is Your Relationship Status? MIGRATION.329430 0793 Information not available 09/06/2022 Do You Use Your Seat Belt Or Car Seat Routinely? Yes MIGRATION.[id number] 9691 Information not available 09/06/2022 Do You Have Smoke And Carbon Monoxide Detectors In Your Home? Yes MIGRATION.776163 8929 Information not available 09/06/2022 Are You Passively Exposed To Smoke? No [email or web address] Information no t available 11/13/2022 Do You Or Have You Ever Used Smokeless Tobacco? Never Used Smokeless Tobacco MIGRATION.525768 5904 Information not available 09/06/2022 Are There Any Smokers In Your House? No [email or web address] Information not available 11/13/2022 How Much Tobacco Do You Smoke? No MIGRATION.679158 7290 Information not available 09/06/2022 Do You Feel Stressed (tense, Restless, Nervous, Or Anxious, Or Unable To Sleep At Night)? [email or web address] Information not available 11/13/2022 Do You Use Any Illicit Or Recreational Drugs? No MIGRATION.705739 3992 Information not available 09/06/2022 Do You Use Sunscreen Routinely? Yes MIGRATION.486519 5637 Information not available 09/06/2022 Have You Recently Traveled Abroad? No MIGRATION.706515 9940 Information not available 09/06/2022 Do You Have Any Dietary Restrictions? No MIGRATION.241626 1409 Information not available 09/06/2022 Do You Or Have You Ever Used Any Other Forms Of Tobacco Or Nicotine? No MIGRATION.628026 6222 Information not available 09/06/2022 Sex: Unknown Functional Status Question Answer Note LastModified by Organizat ion Details LastModified Time What is your exercise level? Moderate [id number] Information not available 09/06/2022 Mental Status None recorded. Family History Relationship Description Onset Age of this Age Resolved Age Notes LastModified by Organization Details LastModified Time Father No current problems or disability [id number] Not available 09/06/2022 04:29:37 Father General health good [id number] Not available 09/06/2022 04:29:37 Mother No current problems or disability [id number] Not available 09/06/2022 04:29:37 Medical History Condition Response EYE PROBLEMS Y ANXIETY DISORDER Y ASTHMA Y BOWEL PROBLEMS Y DEPRESSION (INCLUDING POST ) Y HEARTBURN / REFLUX Y HIGH CHOLESTEROL / HYPERLIPIDEMIA Y Past Encounters Encounter ID Performer Location Encounter Start Date Encounter Closed Date Diagnosis/Indication Diagnosis SNOMED-CT Code Diagnosis ICD10 Code Diagnosis Note [id number] _MAURICIO_[place]_ DEFAULT_1 _1 , 11/03/2020 00:00:00 11/03/2020 14:31:20 [id number] [facility] [place] [address] [place] [address] 11/03/2020 00:00:00 11/03/2020 17:47:22 [id number] [facility] [place] [address] [place] [address] 05/11/2021 00:00:00 06/05/2021 18:10:13 [id number] [facility] [place] [address] [place] [address] 11/02/2021 00:00:00 11/04/2021 18:13:22 [id number] [facility] [place] [address] [place] [address] 11/23/2021 00:00:00 12/05/2021 21:56:16 [id number] MARY GRACE Zee [facility] [place] [address] [place] [address] 11/13/2022 11:01:32 11/13/2022 11:40:07 Adult health examination 599818906 Z00.01 well exam completed and labs ordered. Hyperlipidemia 47861958 E78.5 diet attempt at controllin g. due for fasting panel Long-term drug therapy 648191628 Z79.899 routine labs due Diabetes m ellitus screening 437492969 Z13.1 Thyroid di sorder screening 248863789 Z13.29 Nodule of skin of right upper limb 8615354369 4646923 R22.31 refer to derm for removal of nodule RUE Anxiety 89834564 F41.9 stable on sertraline 100mg daily. refilled. [id number] MARY GRACE Zee [facility] [place] [place] [address] [place] [address] 06/18/2023 13:56:30 06/18/2023 14:34:02 Viral syndrome 498874780 B34.9 check EBV ab panel, r/o mono as cause of wax and wane fever Weight loss 88268904 R63 .4 screening TFT panel, cbc and cmp Hyperlipidemia 51141223 E78.5 diet attempt at controllin g. due for fasting panel Diabetes m ellitus screening 344421951 Z13.1 screening a1c due Endocrine/ metabolic screening 405140640 Z13.228 screening testostero ne and b12, folate ordered Low grade pyrexia 415638 008 R50.9 check urine w/reflex cx Health Concerns Section Related Observation LastModified by Organization Detai ls LastModified Time None Recorded Concern Status LastModified by Organization Details LastModified Time None Recorded Advance Directives Directive N: Payers Encounter Date Sequence Insurance Name Policy Number Policy Stanton Covered Member ID Stanton Member ID Guarantor Name 11/13/2022 1 [place] [id number] Rashad Cabral [id number] Rashad Cabral 06/18/2023 1 [employer] [id number] Rashad Cabral [id number] Rashad Cabral Notes Date Note Type Note Provider Name and Address Organization Details Recorded Time 05/11/20 21 text/htm l Anxiety, Generalized DisorderReported bypatient.Severity:moderate Modifying Factors:other medicationsNotes:stable on sertraline. .overdue for apptHyperlipidemiaReported bypatient.Notes:pt is overdue for repeat labwork.Sore ThroatReported bypatient.Location:bilateral; middle Onset/Timing:sudden Duration:started 4 day(s) ago Quality:no difficulty swallowing; no hoarseness; no laryngitis;painful;burning Severity:worsening Associated Symptoms:no fever; no cough; no throat hoarseness; no dysphagia; no nausea; no vomiting; no appetite loss; no choking; no globus sensation; no lethargy; no rash; no abdominal pain; no conjunctivitis;swollen glands;headache;itching throat; Green phlegm Not Available [facility] [employer] [facility] 06/05/2021 18:10:13 11/03/19 22 text/htm l Anxiety/DepressionReported bypatient.Quality:symptoms improved Severity:denies suicidal ideations; able to maintain relationships; does not interfere with activities of daily living Duration:symptoms lasting over 2 weeks Onset/Timing:still present Context:no major life stressors Modifying Factors:medications as directed Associated Symptoms:denies homicidal ideations; no significant weight gain; no significant weight loss; no visual/auditory hallucinations; no delusions; no shortness of breath; mood good; no anxiety; no crying spells; no panic; no isolation; sleeping well; appetite good; energy good; no apathy; maintaining functionality Not Available [facility] [employer] [facility] 11/04/2021 18:13:22 11/24/19 22 text/htm l Arm InjuryReported bypatient.Location:left (elbow) Severity:mild; pain level 2/10 Duration:date of onset: (11/22/21) Context:fall; fell and hit elbow on wall Alleviating Factors:ice Aggravating Factors:pushing/pulling; grasping; squeezing; weightbearing; changing clothes; morning (was very stiff this morning) Associated Symptoms:no weakness; no numbness; no tingling; no warmth; no ecchymosis; no catching/locking; no popping/clicking; no buckling; no grinding; no instability; no radiation down arm; no drainage; no fever; no chills; no weight loss; no change in bowel/bladder habits;swelling;redness Work Related:no Not Available [facility] [employer] [facility] 12/05/2021 21:56:16 11/14/19 text/htm l Anxiety/DepressionReported bypatient.Severity:denies suicidal ideations; able to maintain relationships; does not interfere with activities of daily living Context:no major life stressors Associated Symptoms:denies homicidal ideations; no significant weight gain; no significant weight loss; no visual/auditory hallucinations; no delusions; no shortness of breathNotes:better with medsHyperlipidemiaReported bypatient.Duration:chronic Control:usually well controlled; improving; at goal Compliance:compliant; compliant with diet; exercises Complications:no coronary artery disease; no peripheral artery disease; no cardiovascular disease did not complete labs from 10/2021 MARY GRACE Zee [address], [place] [address], [place], [address], [employer] 12/06/2022 14:21:34 06/18/20 23 text/htm l Generic HPI TemplateReported bypatient.Notes:Pt has had fever, vomiting, diarrhea, and body aches 3x in the last 30days. Last time he had it was last . First episode it lasted 4 days, 2nd episode lasted 7 days, and 3rd episode lasted 6 days. He has lost 20lb since this all started. MARY GRACE Zee [address], [facility] [address], [place], [address], [employer] 07/05/2023 09:44:52
[2024-08-21 15:13] VITALS: BMI 29.5
--- NOTE | 2024-08-21 15:13 | WPDHOMESLEEP ---
Sleep Study - Home Unattended Date of Study: 08/07/24 Ordering Provider: Kathy Ramos, PAEliud Interpreting Provider: Ruthy Motta, DO Home Sleep Study Type: Watch PAT Height: 1.75 m Weight: 90.718 kg Body Mass Index: 29.5 Neck Circumference (inches): 16.75 [place]: 6 Reason for Sleep Study Loud snoring, daytime hypersomnia Sleep History The patient is a 33-year-old male that had a sleep study ordered by his primary care for evaluation of sleep apnea. The patient admits to snoring loudly, excessive daytime sleepiness, interruptions in breathing while asleep and difficulty falling and staying asleep. He admits to choking or gasping at night. He does have trouble breathing on his back. He denies morning headaches. He does have a dry or sore mouth / throat in the morning. He denies nocturnal heartburn. He denies nocturia. He does have difficulty returning to sleep if he wakes up throughout the night. He denies hypnotic or sedative use. He denies feeling anxious about sleep. He does feel tired or sleepy during the day. He does feel tired in the morning. He does have the urge to fall asleep during the day. He does feel drowsy while driving. He denies sleep paralysis, cataplexy and hypnagogic/ hypnopompic hallucinations. He does clench or grind his teeth. He denies kicking or jerking his legs excessively. He denies having a restless feeling in his legs. He goes to bed at 10:30 p.m. on work days and 11:00 p.m. on his days off it takes him 1 hour to fall asleep. He gets 6 hours of sleep per night. His sleep is a little more restorative on his days off. He does take a 1-2 hour nap in the afternoon that is restorative. He denies dream enactment behavior. He denies sleep walking. He consumes 3-4 cups of caffeinated beverage per day. He consumes 2 alcoholic beverages 1-2 nights per week. He denies tobacco use. He exercises 1-2 nights per week. He does have a rotating shift schedule at work. [facility] Family History Family History Grandparent Diabetes mellitus Social History Social History Smoking status: Never smoker Alcohol intake: current Sleep Procedure The sleep study was completed using [employer] a technically adequate device with seven channels: peripheral arterial tone, actigraphy, body position, snore, respiratory movement, pulse oximetry, sleep staging, and heart rate. Prior to using the device, the patient received verbal and written instructions for its application and was provided with the help desk phone number for additional telephonic instruction with 24-hour availability of qualified personnel to answer questions. The study was scored using CMS guidelines. Sleep Architecture The total recording time is 9 hrs, 6 min. The total sleep time is 8 hrs, 18 min. Sleep latency is 15 minutes. REM latency is 66 minutes. The patient had 12 episodes of waking. Sleep architecture shows 15.6% deep sleep, 55.1% light sleep, and (as % Total Sleep Time) showed NREM (Light 55.1%; Deep 15.6%), and a 29.3% stage REM. The patient spent 49.3% of total sleep time in the supine position. Sleep efficiency was 91.21. Respiratory Analysis The overall AHI (pAHI 3%:) is 23.2. The central AHI is 2.4. The AHI was 23.0 in NREM and 23.7 in REM sleep. The AHI was 39.9 in Supine and 5.9 in Non-supine sleep. Percent of Gamal Dill respirations is 0.0. Oximetry Data The oxygen desaturation index (THERESA 4%:) is 18.4. The mean saturation is 95%, and the lowest saturation is 82%. Time spent with saturation < 88% is 3.4 minutes. Snoring Profile Snoring average intensity is 42 dB. The patient snored above 45 decibels for 60.2 minutes, 12.1% of sleep time. Cardiac Profile The average pulse rate is 60 beats per minutes. The lowest pulse rate is 43 bpm. The highest pulse rate reported is 94 bpm. Atrial fibrillation was not detected. Premature beats occur <0.1 per minute. Assessment and Plan Assessment and Plan (1) MANN (obstructive sleep apnea): Code(s): G47.33 - Obstructive sleep apnea (adult) (pediatric) Status: Acute Assessment and Plan: The patient had an overall AHI of 16.7 with desaturation down to 82%. This is consistent with moderate sleep apnea. I recommend that the patient be prescribed AutoPAP 5-15 cm H2O, CPAP mask/filters/tubing and heated humidity. A mandibular advancement device is also an acceptable treatment option. This should be used with all episodes of sleep.? Compliance should be reviewed within 31-90 days of starting therapy for usage greater than 4 hours per night greater than 70% of the nights. The patient should be asked about symptoms such as?excessive daytime sleepiness, quality of sleep, decreased nocturia, increased?mental functioning such as memory, mood, and concentration. Data The data obtained during this sleep study is adequate for interpretation. Certification This sleep study has been reviewed by a board certified sleep medicine physician.
== END 2024-08-08 11:06 | disposition home or self-care (01) ==
LOC: ANHCSM 09:41
PROVIDERS: PCP Physician Assistant; Visit Provider Physician Assistant
DX: G47.30 Sleep apnea, unspecified (principal); G47.33 Obstructive sleep apnea (adult) (pediatric)
CPT/HCPCS: 95800

== ENCOUNTER 2025-06-22 07:48 | Outpatient (CLI) | payer BC, SELFPAY ==
--- NOTE | ~2025-06-22 | MR_ITS ---
EXAM/PROCEDURE: MR lumbar spine wo con HISTORY: Lumbar disc protrusion COMPARISON: None available. TECHNIQUE: Multiplanar lumbar spine MRI without contrast FINDINGS: Degenerative changes present throughout the lumbar spine involving disc spaces and posterior elements. No acute or aggressive bony or soft tissue process seen. The conus tapers normally at the level of L1. Level specific findings as follows: T12-L1: Mild degenerative change L1-2: Mild degenerative change L2-3: Mild degenerative change L3-4: Mild to moderate hyperostosis of the facet joints with mild posterior spondylosis and mild to moderate right, and mild left sided neural foraminal narrowing. No spinal canal stenosis or discrete disc protrusion. L4-5: Moderately severe broad-based disc bulging more pronounced in the left foraminal region with no spinal canal stenosis or discrete disc protrusion. Moderate left and mild to moderate right-sided neural foraminal narrowing. L5-S1: Small central disc protrusion and possible tiny posterior annular tear. Desiccation, disc space narrowing as well as anterior and posterior spondylosis more pronounced at this level. No spinal canal stenosis. Moderately severe bilateral neural foraminal narrowing. IMPRESSION: Multilevel degenerative changes, most advanced at L5-S1 as cataloged above. Reviewed, dictated and finalized at location A. [employer]
== END 2025-06-22 07:49 | disposition home or self-care (01) ==
LOC: MICIMG 07:49
PROVIDERS: PCP Physician Assistant; Visit Provider Chiropractor
DX: M51.26 Other intervertebral disc displacement, lumbar region (principal); M51.369 Other intervertebral disc degeneration, lumbar region without mention of lumbar back pain or lower extremity pain
CPT/HCPCS: 72148